=== PATIENT | male | born 1950 | race Caucasian/White ===

== ENCOUNTER 2018-10-20 06:25 | Emergency (ER) | payer MEDICARE, OTHER ==
[2018-10-20] MEDS ORDERED: PROVENTIL 2.5 MG/3 ML NEB IH ONE ×2 (06:30→06:34)
[2018-10-20] MEDS ORDERED: Zithromax 500 MG/ 250 ML NaCl Premix 500 MG/250 ML IVPB IV STA (06:31)
[2018-10-20] MEDS ORDERED: ROCEPHIN 2 Gm-D5w 50ML BAG** 2 G/50 ML IVPB IV STA (06:35)
[2018-10-20] MEDS ORDERED: solu-MEDROL 125 MG IV ONE ×2 (06:36→06:38)
[2018-10-20] MEDS ORDERED: Sodium Chloride 0.9% 1000 ML 1,000 ML IV SCH (06:45)
[2018-10-20] MEDS ORDERED: solu-MEDROL 125 MG ONE (06:59)
[2018-10-20] MEDS ORDERED: ROCEPHIN 2 Gm-D5w 50ML BAG** 2 G/50 ML IVPB IV ONE (07:00)
[2018-10-20] MEDS ORDERED: Sodium Chloride 0.9% 1000 ML 1,000 ML ONE (07:00)
--- NOTE | 2018-10-20 07:03 | ERPHSYRPT ---
- History of Present Illness Source: patient Timing/Duration: today Activities at Onset: none Severity of Dyspnea-Max: severe Severity of Dyspnea-Current: severe Possible Cause: occasional episodes Associated Symptoms: cough, wheezing <MARIANO MATIAS - Last Filed: 10/20/18 07:07> <LUZ DURANSH - Last Filed: 10/20/18 08:11> - History of Present Illness Time Seen by Provider: 10/20/18 06:50 Physician History: PATIENT WITH A HISTORY OF COPD, CHF, MYOCARDIAL INFARCTION WITH 2 STENTS, COMPLAINS OF DIFFICULTY BREATHING ONSET 3AM ASSOCIATED WITH A NONPRODUCTIVE COUGH. DENIES CHEST PAIN, FEVER, CHILLS (MARIANO MATIAS) Allergies/Adverse Reactions: levofloxacin [From [employer]] Allergy (Verified 10/20/18 06:58) Penicillins Allergy (Verified 10/20/18 06:58) Home Medications: Aspirin 81 gm Chew [Baby Aspirin 81 mg Chew] 81 mg PO DAILY 10/20/18 [ History] Docosahexanoic Acid/Epa [Fish Oil Concentrate Softgel] 300 mg PO BID 10/20/18 [ History] Gabapentin 100 mg PO TID 10/20/18 [History] Hydralazine HCl 10 mg PO BID 10/20/18 [History] Isosorbide Mononitrate 20 mg PO DAILY 10/20/18 [History] Potassium Chloride 20 meq PO DAILY PRN PRN 10/20/18 [History] Simvastatin 20Mg [Zocor 20Mg] 40 mg PO QPM 10/20/18 [History] Torsemide 20 mg [Demadex 20 mg] 20 mg PO DAILY PRN PRN 10/20/18 [History] Ubidecarenone [Co Q-10] 300 mg PO DAILY 10/20/18 [History] - Review of Systems Constitutional: No Fever, No Chills Eyes: No Symptoms Ears, Nose, & Throat: No Symptoms Respiratory: Cough, Dyspnea, Wheezing Cardiac: No Symptoms, No Chest Pain, No Edema, No Syncope Abdominal/Gastrointestinal: No Symptoms, No Abdominal Pain, No Nausea, No Vomiting, No Diarrhea Genitourinary Symptoms: No Symptoms, No Dysuria Musculoskeletal: No Symptoms, No Back Pain, No Neck Pain Skin: No Symptoms, No Rash Neurological: No Dizziness, No Focal Weakness, No Sensory Changes Psychological: No Symptoms Endocrine: No Symptoms All Other Systems: Reviewed and Negative <MARIANO MATIAS Last Filed: 10/20/18 07:07> - Physical Exam General Appearance: moderate distress, other (AUDIBLE WHEEZES, ACCESSORY MUSCLE USE) Eye Exam: PERRL/EOMI Ears, Nose, Throat Exam: hearing grossly normal Neck Exam: normal inspection Respiratory Exam: diminished breath sounds, accessory muscle use, prolonged expirations, wheezing Cardiovascular/Chest Exam: normal heart sounds, tachycardia Abdominal/Gastrointestinal Exam: soft, normal bowel sounds Extremity Exam: non-tender, normal range of motion, swelling Peripheral Pulses Exam: carotid (R): 1+, carotid (L): 1+, femoral (R): 1+, femoral (L): 1+, dorsalis-pedis (R): 1+, dorsalis-pedis (L): 1+ Neurologic Exam: alert, oriented x 3 SpO2 Interpretation: hypoxic SpO2: 90 <MARIANO MATIAS Last Filed: 10/20/18 07:07> - Nursing Vital Signs Nursing Vital Signs: Initial Vital Signs Temperature 98.1 F 10/20/18 06:38 Pulse Rate 104 H 10/20/18 06:38 Respiratory Rate 32 H 10/20/18 06:38 Blood Pressure 149/86 10/20/18 06:38 O2 Sat by Pulse Oximetry 89 L 10/20/18 06:38 Pain Scale Pain Intensity 0 - Course EKG Interpreted by Me: RATE, Sinus Rhythm, Sinus Tach (INFERIOR ST SEGMENT DEPRESSION) - Radiology Exams Chest X-ray Interpretation: Interpreted by me (DIFFUSE PULMONARY FIBROSIS VS INFILTRATES, PREVIOUS STERNOTOMY) <FLORENCIOMARIANO BRONSON Filed: 10/20/18 07:07> Ordered Tests: Active Orders 24 hr Category Date Time Status Vulcanized Fiber Unit Operator STAT Care 10/20/18 06:33 Active EKG-ER Only STAT Care 10/20/18 06:31 Active IV Insertion STAT Care 10/20/18 06:31 Active CHEST 1 VIEW (PORTABLE) Stat Exams 10/20/18 06:32 Taken BLOOD CULTURE Stat Lab 10/20/18 07:19 Received CBC W DIFF Stat Lab 10/20/18 07:19 Completed CMP Stat Lab 10/20/18 07:19 Completed D-DIMER QUANTITATION Stat Lab 10/20/18 07:19 Completed Lactic Acid Stat Lab 07/20/19 06:31 Completed MAGNESIUM Stat Lab 10/20/18 07:19 Completed NT PRO BNP Stat Lab 10/20/18 07:19 Completed TROPONIN Q3H Lab 10/20/18 07:19 Completed TROPONIN Q3H Lab 10/20/18 09:45 Ordered TROPONIN Q3H Lab 10/20/18 12:45 Ordered TROPONIN Q3H Lab 10/20/18 15:45 Ordered TROPONIN Q3H Lab 10/20/18 18:45 Ordered VENOUS BLOOD GAS Stat Lab 10/20/18 06:31 Completed Peak Expiratory Flow Rate ONCE RT 10/20/18 06:31 Completed Respiratory Therapy Assessment DAILY RT 10/20/18 06:50 Completed Medication Summary Generic Name Dose Route Start Last Admin Trade Name Freq PRN Reason Stop Dose Admin Sodium Chloride 1,000 mls @ 50 mls/hr 10/20/18 06:45 10/20/18 07:10 Sodium Chloride 0.9% 1000 Ml IV 11/19/18 06:44 50 mls/hr .Q20H CECY Administration Discontinued Medications Generic Name Dose Route Start Last Admin Trade Name Freq PRN Reason Stop Dose Admin Albuterol Sulfate Confirm 10/20/18 06:30 Proventil 2.5 Mg/3 Ml Neb Administered 10/20/18 06:31 Dose 10 mg IH .STK-MED ONE Albuterol Sulfate 10 mg 10/20/18 06:34 10/20/18 06:49 Proventil 2.5 Mg/3 Ml Neb IH 10/20/18 06:35 10 mg STAT ONE Administration Enoxaparin Sodium Confirm 10/20/18 07:49 Enoxaparin Sodium Administered 10/20/18 07:50 Dose 120 mg SQ .STK-MED ONE Enoxaparin Sodium 120 mg 10/20/18 08:01 10/20/18 08:02 Enoxaparin Sodium SQ 10/20/18 08:02 120 mg STAT STA Administration Azithromycin 500 mg in 250 mls @ 250 mls/hr 10/20/18 06:31 10/20/18 07:43 Zithromax 500 Mg/ 250 Ml Nacl Premix IV 10/20/18 07:30 250 mls/hr STAT STA 250 mls/hr Administration Ceftriaxone Sodium/Dextrose 2 g in 50 mls @ 100 mls/hr 10/20/18 06:35 07:52 Rocephin 2 Gm-D5w 50ml Bag IV 10/20/18 07:04 Infused STAT STA Infusion Ceftriaxone Sodium/Dextrose Confirm 10/20/18 07:00 Rocephin 2 Gm-D5w 50ml Bag Administered 10/20/18 07:01 Dose 2 g in 50 mls @ ud IV .STK-MED ONE Azithromycin Confirm 10/20/18 07:20 Zithromax 500 Mg/ 250 Ml Nacl Premix Administered 10/20/18 07:21 Dose 500 mg in 250 mls @ ud IV .STK-MED ONE Methylprednisolone Sodium Succinate 125 mg 10/20/18 06:36 10/20/18 07:11 Solu-Medrol 125 Mg IV 10/20/18 06:37 125 mg STAT ONE Administration Methylprednisolone Sodium Succinate 125 mg 10/20/18 06:38 10/20/18 07:12 Solu-Medrol 125 Mg IV 10/20/18 06:39 Not Given STAT ONE Methylprednisolone Sodium Succinate Confirm 10/20/18 06:59 Solu-Medrol 125 Mg Administered 10/20/18 07:00 Dose 125 mg .ROUTE .STK-MED ONE Lab/Rad Data: Laboratory Result Diagrams 10/20/18 07:19 10/20/18 07:19 Laboratory Results 10/20/18 10/20/18 10/20/18 Range/Units 07:19 07:19 07:19 WBC 6.9 (4.0-10.5) K/mm3 RBC 4.06 L (4.1-5.6) M/mm3 Hgb 9.8 L (12.5-18.0) gm/dl Hct 32.7 L (42-50) % MCV 80.5 (78-100) fl MCH 24.1 L (26-32) pg MCHC 30.0 L (32-36) g/dl RDW 16.9 H (11.5-14.0) % Plt Count 221 (150-450) K/mm3 MPV 9.3 (6-9.5) fl Gran % 72.6 H (36.0-66.0) % Eos # (Auto) 0.20 (0-0.5) Absolute Lymphs (auto) 1.10 (1.0-4.6) Absolute Monos (auto) 0.56 (0.0-1.3) Lymphocytes % 16.0 L (24.0-44.0) % Monocytes % 8.2 (0.0-12.0) % Eosinophils % 2.9 (0.00-5.0) % Basophils % 0.3 (0.0-0.4) % Absolute Granulocytes 4.99 (1.4-6.9) Basophils # 0.02 (0-0.4) D-Dimer 1387 H* (215-500) ng/mL pO2/FiO2 Ratio % VBG pH (7.32-7.42) VBG pCO2 at Pat Temp (42-55) mm/Hg VBG pO2 at Pat Temp (25-40) mm/Hg VBG HCO3 (22-28) meq/L VBG O2 Sat (Hiren) (95-100) VBG Base Excess (-2.0-2.0) VBG Hemoglobin VBG Carboxyhemoglobin (0.0-6.9) % T HGB POC Potassium (3.5-5.1) Sodium (137-145) mmol/L Potassium (3.5-5.1) mmol/L Chloride (98-107) mmol/L Carbon Dioxide (22-30) mmol/L Anion Gap (5-15) MEQ/L BUN (9-20) mg/dL Creatinine (0.66-1.25) mg/dL Estimated GFR ML/MIN Glucose (74-106) mg/dL Lactic Acid (0.4-2.0) Calcium (8.4-10.2) mg/dL Magnesium (1.6-2.3) mg/dL Total Bilirubin (0.2-1.3) mg/dL AST (17-59) U/L ALT (0-50) U/L Alkaline Phosphatase (38-126) U/L Troponin I (0.000-0.034) ng/mL NT-Pro-B Natriuret Pep (0-900) pg/mL Serum Total Protein (6.3-8.2) g/dL Albumin (3.5-5.0) g/dL Influenza Type A Ag NEGATIVE (NEGATIVE) Influenza Type B Ag NEGATIVE (NEGATIVE) RSV (PCR) NEGATIVE (Negative) 10/20/18 10/20/1819 Range/Units 07:19 07:19 06:31 WBC (4.0-10.5) K/mm3 RBC (4.1-5.6) M/mm3 Hgb (12.5-18.0) gm/dl Hct (42-50) % MCV (78-100) fl MCH (26-32) pg MCHC (32-36) g/dl RDW (11.5-14.0) % Plt Count (150-450) K/mm3 MPV (6-9.5) fl Gran % (36.0-66.0) % Eos # (Auto) (0-0.5) Absolute Lymphs (auto) (1.0-4.6) Absolute Monos (auto) (0.0-1.3) Lymphocytes % (24.0-44.0) % Monocytes % (0.0-12.0) % Eosinophils % (0.00-5.0) % Basophils % (0.0-0.4) % Absolute Granulocytes (1.4-6.9) Basophils # (0-0.4) D-Dimer (215-500) ng/mL pO2/FiO2 Ratio 32.0 % VBG pH 7.33 (7.32-7.42) VBG pCO2 at Pat Temp 40 L (42-55) mm/Hg VBG pO2 at Pat Temp 31 (25-40) mm/Hg VBG HCO3 21.1 L (22-28) meq/L VBG O2 Sat (Hiren) 66.0 L (95-100) VBG Base Excess -4.5 L (-2.0-2.0) VBG Hemoglobin 9.9 VBG Carboxyhemoglobin 1.9 (0.0-6.9) % T HGB POC Potassium 4.4 (3.5-5.1) Sodium 142 (137-145) mmol/L Potassium 4.5 (3.5-5.1) mmol/L Chloride 114 H (98-107) mmol/L Carbon Dioxide 20 L (22-30) mmol/L Anion Gap 12.1 (5-15) MEQ/L BUN 23 H (9-20) mg/dL Creatinine 2.28 H (0.66-1.25) mg/dL Estimated GFR 30.6 ML/MIN Glucose 122 H (74-106) mg/dL Lactic Acid 0.9 (0.4-2.0) Calcium 9.3 (8.4-10.2) mg/dL Magnesium 2.2 (1.6-2.3) mg/dL Total Bilirubin 0.40 (0.2-1.3) mg/dL AST 20 (17-59) U/L ALT 12 (0-50) U/L Alkaline Phosphatase 83 (38-126) U/L Troponin I 0.067 H* (0.000-0.034) ng/mL NT-Pro-B Natriuret Pep 5460 H (0-900) pg/mL Serum Total Protein 7.3 (6.3-8.2) g/dL Albumin 4.1 (3.5-5.0) g/dL Influenza Type A Ag (NEGATIVE) Influenza Type B Ag (NEGATIVE) RSV (PCR) (Negative) - Progress Blood Culture(s) Obtained: Yes Antibiotics given: Yes <MARIANO MATIAS - Last Filed: 10/20/18 07:07> - Progress Discussed with .: Other (Dr rey at [facility]) Will see patient in: other <ADAN DURAN - Last Filed: 10/20/18 08:11> - Progress Progress Note: 10/20/18 07:07 ADMINISTERED CONTINUOUS ALBUTEROL 10MG OVER 1 HOUR, SOLUMEDROL 125MG IV, AFTER 2 SETS BLOOD CULTURES, ROCEPHIN 2GM, ZITHROMAX 500MG IVPB 10/20/18 07:08, PATIENT CARE ENDORSED TO DR DURAN AT 0710 (MARIANO MATIAS) 10/20/18 07:24 Patient seen, examined, (ADAN DURAN) <MARIANO MATIAS - Last Filed: 10/20/18 07:07> - Departure Departure Disposition: Transfer ([facility], Dr Rey) Critical Care Time: Yes Critical Care Time(excluding separately billable procedures): 30-74 minutes <ADAN DURAN - Last Filed: 10/20/18 08:11> - Departure Clinical Impression: COPD exacerbation, D-dimer, elevated, Chronic renal insufficiency, stage III ( moderate), Elevated troponin I level Condition: Stable Referrals: DOCTOR,NO FAMILY [NON-STAFF PHY W/O PRIVILEGES] - Instructions: Chronic Obstructive Pulmonary Disease
[2018-10-20 07:10] LABS: Lactic Acid 0.9 (0.4-2.0); VBG BASE EXCESS -4.5 (-2.0-2.0); VBG CARBOXYHEMOGLOBIN 1.9 % T HGB (0.0-6.9); VBG HCO3- 21.1 meq/L (22-28); VBG HEMOGLOBIN 9.9; VBG POTASSIUM 4.4 (3.5-5.1); VBG pH 7.33 (7.32-7.42)
[2018-10-20 07:19] LABS: BASOPHIL % 0.3 % (0.0-0.4); Basophil (Absolute #) 0.02 (0-0.4); Eosinophil % 2.9 % (0.00-5.0); Granulocyte Absolute (ANC) 4.99 (1.4-6.9); Granulocytes % 72.6 % (36.0-66.0); Hematocrit 32.7 % (42-50); Hemoglobin 9.8 gm/dl (12.5-18.0); Mean Cell Volume 80.5 fl (78-100); Mean Corpuscular Hemoglobin 24.1 pg (26-32); Mean Platelet Volume 9.3 fl (6-9.5); Monocyte (Absolute #) 0.56 (0.0-1.3); Monocytes % 8.2 % (0.0-12.0); Platelet Count 221 K/mm3 (150-450); Red Blood Count 4.06 M/mm3 (4.1-5.6); Red Cell Distribution Width 16.9 % (11.5-14.0); White Blood Count 6.9 K/mm3 (4.0-10.5)
[2018-10-20] MEDS ORDERED: Zithromax 500 MG/ 250 ML NaCl Premix 500 MG/250 ML IVPB IV ONE (07:20)
[2018-10-20 07:39] LABS: ALBUMIN 4.1 g/dL (3.5-5.0); ANION GAP 12.1 MEQ/L (5-15); BILIRUBIN,TOTAL 0.4 mg/dL (0.2-1.3); Calcium 9.3 mg/dL (8.4-10.2); Creatinine 1 2.28 mg/dL (0.66-1.25); MAGNESIUM 2.2 mg/dL (1.6-2.3); Potassium 4.5 mmol/L (3.5-5.1); Total Protein 7.3 g/dL (6.3-8.2)
[2018-10-20] MEDS ORDERED: ENOXAPARIN SODIUM SQ ONE (07:49)
[2018-10-20 07:50] VITALS: BP 140/79; O2SAT 99
[2018-10-20 07:51] LABS: INFLUENZA A NEGATIVE (NEGATIVE); INFLUENZA B NEGATIVE (NEGATIVE); RESPIRATORY SYNCTIAL VIRUS NEGATIVE (Negative)
[2018-10-20 07:55] VITALS: PULSE 94
[2018-10-20] MEDS ORDERED: ENOXAPARIN SODIUM SQ STA (08:01)
--- NOTE | 2018-10-20 09:57 | XRAY ---
Indication: Difficulty breathing. Comparison: None Portable chest demonstrates diffuse bilateral interstitial alveolar opacities with small bibasilar effusions. Right infrahilar calcified granuloma. Heart is borderline enlarged with CABG. Findings concerning for cardiac decompensation/CHF. Superimposed pneumonia not completely excluded. Bony thorax intact.
== END 2018-10-20 09:06 ==
LOC: EDBD 06:25 → ED 06:25
DX: J44.1 Chronic obstructive pulmonary disease with (acute) exacerbation (principal); R09.02 Hypoxemia; R79.89 Other specified abnormal findings of blood chemistry; N18.3 Chronic kidney disease, stage 3 (moderate); R74.8 Abnormal levels of other serum enzymes; I50.9 Heart failure, unspecified; Z79.899 Other long term (current) drug therapy; I25.2 Old myocardial infarction
CPT/HCPCS: 36415; 71045; 80053; 82805; 83605; 83735; 83880; 84484; 85025; 85379; 87040; 87631; 93005; 93041; 94150; 94640; 96360; 96361; 96365; 96367; 96372; 96374; 99285; 99291; J0456; J0696; J1650; J2930; J7609; A9270-GY